=== PATIENT | male | born 1985 | race African-American/Black ===

== ENCOUNTER 2019-11-29 16:04 | Inpatient (IN) | payer OTHER ==
[2019-11-29 17:26] VITALS: BMI 18.6
--- NOTE | 2019-11-29 17:58 | HP ---
CIWA Score Nausea/Vomitin Muscle Tremors: 4-Moderate,w/Arms Extend Anxiety: 4-Mod. Anxious/Guarded Agitation: 3 Paroxysmal Sweats: 3 Orientation: 1-Uncertain about Date Tacttile Disturbances: 1-Very Mild Itch/Numbness Auditory Disturbances: 0-None Visual Disturbances: 0-None Headache: 0-None Present CIWA-Ar Total Score: 18 - Admission Criteria OASAS Guidelines: Admission for Medically Managed Detox: Requires at least one of the followin. CIWA greater than 12 2. Seizures within the past 24 hours 3. Delirium tremens within the past 24 hours 4. Hallucinations within the past 24 hours 5. Acute intervention needed for co occurring medical disorder 6. Acute intervention needed for co occurring psychiatric disorder 7. Severe withdrawal that cannot be handled at a lower level of care (continued vomiting, continued diarrhea, abnormal vital signs) requiring intravenous medication and/or fluids 8. Admitting History and Physical - Smoking History Smoking history: Current every day smoker Aproximately how many cigarettes per day: 10 Admission ROS [facility] Chief Complaint: Alcohol withdrawal symptoms Allergies/Adverse Reactions: Allergies Allergy/AdvReac Type Severity Reaction Status Date / Time No Known Allergies Allergy Verified 11/29/19 18:11 History of Present Illness: 34 years old male with a long history of alcohol dependence (since age 20 years ) is seeking admission to detox. Patient reports that his last detox was at [facility] and this is his first admission to [facility]. He denies medical history and psych. history of schizophrenia, bipolar disorder, anxiety and depression. 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 Patient reports that he lives in a transitional housing and is on public assistance. Exam Limitations: No Limitations - Ebola screening Have you traveled outside of the country in the last 21 days: No Have you been sick,other than usual withdrawal symptoms: No Do you have a fever: No - Review of Systems Constitutional: Chills, Loss of Appetite, Malaise, Night Sweats, Changes in sleep, Weakness EENT: reports: No Symptoms Reported Respiratory: reports: No Symptoms reported Cardiac: reports: No Symptoms Reported GI: reports: Diarrhea (x 2), Nausea, Poor Appetite, Poor Fluid Intake, Abdominal cramping : reports: No Symptoms Reported Musculoskeletal: reports: No Symptoms Reported Integumentary: reports: Dryness, Flushing Neuro: reports: Tremors Endocrine: reports: No Symptoms Reported Hematology: reports: No Symptoms Reported Psychiatric: reports: Mood/Affect Appropiate, Anxious, Depressed Other Systems: Reviewed and Negative Patient History - Patient Medical History Hx Anemia: No Hx Asthma: No Hx Chronic Obstructive Pulmonary Disease (COPD): No Hx Cancer: No Hx Cardiac Disorders: No Hx Congestive Heart Failure: No Hx Hypertension: No Hx Hypercholesterolemia: No HX Cerebrovascular Accident: No Hx Seizures: No Hx Diabetes: No Hx Gastrointestinal Disorders: No Hx Liver Disease: No Hx Genitourinary Disorders: No Hx Sexually Transmitted Disorders: No Hx Renal Disease (ESRD): No Hx Thyroid Disease: No Hx Human Immunodeficiency Virus (HIV): No (Negative 2019) Hx Hepatitis C: No Hx Depression: Yes (Seroquel, Haldol) Hx Suicide Attempt: No (Denies suicidal ideation at this time) Hx Bipolar Disorder: Yes (Seroquel, Haldol) Hx Schizophrenia: Yes (Seroquel, Haldol) - Patient Surgical History Past Surgical History: Yes Hx Neurologic Surgery: No Hx Cataract Extraction: No Hx Cardiac Surgery: No Hx Lung Surgery: No Hx Abdominal Surgery: No Hx Appendectomy: No Hx Cholecystectomy: No Hx Genitourinary Surgery: No Hx Orthopedic Surgery: No Other Surgical History: SPLEENECTOMY 2018 Anesthesia Reaction: No - PPD History Previous Implant?: Yes Documented Results: Negative w/o proof Implanted On Prior [facility] Admission?: No PPD to be Administered?: Yes - Reproductive History Patient is a Female of Child Bearing Age (11 -55 yrs old): No (male) - Smoking Cessation Smoking history: Former smoker Have you smoked in the past 12 months: No Hx Chewing Tobacco Use: No Initiated information on smoking cessation: No - Substance & Tx. History Hx Alcohol Use: Yes Hx Substance Use: No Substance Use Type: Alcohol Hx Substance Use Treatment: Yes ([facility] ) - Substances abused Alcohol Substance route: Oral Frequency: Daily Amount used: 6 PACK BEER + 1 BOTTLE VODKA Age of first use: 20 Date of last use: 11/28/19 Admission Physical Exam [facility] - Vital Signs Vital Signs: Vital Signs - 24 hr 11/29/19 17:13 Temperature 97.6 F Pulse Rate 79 Respiratory 18 Rate Blood Pressure 116/82 - Physical General Appearance: Yes: Severe Distress, Tremorous, Irritable, Sweating, Anxious HEENTM: Yes: Within Normal Limits Respiratory: Yes: Lungs Clear, Normal Breath Sounds, No Respiratory Distress Neck: Yes: Within Normal Limits Breast: Yes: Breast Exam Deferred Cardiology: Yes: Regular Rhythm, Regular Rate Abdominal: Yes: Normal Bowel Sounds, Soft Genitourinary: Yes: Within Normal Limits Back: Yes: Normal Inspection Musculoskeletal: Yes: Within Normal Limits Extremities: Yes: Tremors Integumentary: Yes: Warm Lymphatic: Yes: Within Normal Limits - Diagnostic (1) Alcohol dependence with withdrawal, uncomplicated Current Visit: Yes Status: Acute (2) Alcohol related seizure Current Visit: No Status: Chronic (3) Depression Current Visit: Yes Status: Acute Qualifiers: Depression Type: unspecified Qualified Code(s): F32.9 - Major depressive disorder, single episode, unspecified (4) Anxiety Current Visit: Yes Status: Acute Cleared for Admission [facility] - Detox or Rehab [facility] Level of Care: Medically Managed Detox Regimen/Protocol: Librium Claeared for Rehab Admission: No Breathalyzer - Breathalyzer Breathalyzer: 0.064 Urine Drug Screen - Test Device Lot number: [id number] Expiration date: 09/16/21 - Control Is test valid?: Yes - Results Drug screen NEGATIVE: No Urine drug screen results: BZO-Benzodiazepines Inpatient Rehab Admission - Rehab Decision to Admit Inpatient rehab admission?: No
[2019-11-29] MEDS ORDERED: MAG HYDROX/AL HYDROX/SIMETH 30 ML UNIT-DOSE CUP PO PRN (18:11)
[2019-11-29] MEDS ORDERED: METHOCARBAMOL 500 MG TABLET PO PRN (18:11)
[2019-11-29] MEDS ORDERED: ACETAMINOPHEN 325 MG TABLET (FP) PO PRN ×2 (18:11)
[2019-11-29] MEDS ORDERED: MAGNESIUM CITRATE 300 ML BOTTLE PO PRN (18:11)
[2019-11-29] MEDS ORDERED: chlordiazePOXIDE HCL 25 MG CAPSULE PO PRN (18:11)
[2019-11-29] MEDS ORDERED: IBUPROFEN 400 MG TABLET (FP) PO PRN (18:11)
[2019-11-29] MEDS ORDERED: MENTHOL/PHENOL 1 EACH UD MM PRN (18:11)
[2019-11-29] MEDS ORDERED: BISMUTH SUBSALICYLATE 524 MG/30 ML UD PO PRN (18:11)
[2019-11-29] MEDS ORDERED: hydrOXYzine PAMOATE 25 MG CAPSULE (FP) PO PRN (18:11)
[2019-11-29] MEDS ORDERED: MAGNESIUM HYDROX 2400MG/30ML ORAL SUSPENSION 30 ML CUP PO PRN (18:11)
[2019-11-29] MEDS: chlordiazePOXIDE HCL 25 MG CAPSULE PO SCH (22:13)
[2019-11-29] MEDS: MELATONIN 5 MG TABLETS PO PRN (22:13)
[2019-11-29] MEDS: THIAMINE HCL 100 MG TABLET (FP) PO SCH (22:13)
[2019-11-30] MEDS: chlordiazePOXIDE HCL 25 MG CAPSULE PO SCH ×4 (05:20→22:15)
--- NOTE | 2019-11-30 09:00 | PN ---
[facility] CIWA - CIWA Score Nausea/Vomitin-Mild Nausea/No Vomiting Muscle Tremors: 4-Moderate,w/Arms Extend Anxiety: 4-Mod. Anxious/Guarded Agitation: 1-Slight > Activity Paroxysmal Sweats: 2 Orientation: 0-Oriented Tacttile Disturbances: 0-None Auditory Disturbances: 0-None Visual Disturbances: 1-Very Mild Sensitivity Headache: 2-Mild CIWA-Ar Total Score: 15 [facility] Progress Note (SOAP) Subjective: 34 years old male admitted on 11/29/19 for alcohol withdrawal sx management treating with librium detox regiment feeling tired ate breakfast in room resting in bed encourage ensure Objective: 11/30/19 09:06 Vital Signs Temperature 98 F 11/30/19 08:53 Pulse Rate 74 11/30/19 08:53 Respiratory Rate 20 11/30/19 08:53 Blood Pressure 114/71 11/30/19 08:53 O2 Sat by Pulse Oximetry (%) 11/30/19 09:06 lab pending Assessment: 11/30/19 09:06 alcohol withdrawal Plan: librium regiment
[2019-11-30 09:49] LABS: HEMATOCRIT 35.7 % (35.4-49); HEMOGLOBIN 12.1 GM/dL (11.7-16.9); MCHC 33.8 g/dl (32.0-35.9); MEAN CELL VOLUME 97.6 fl (80-96); MEAN PLT VOLUME 8.8 fl (7.5-11.1); PLATELET COUNT 179 K/MM3 (134-434); RBC 3.66 M/mm3 (4.00-5.60); RDW 13.5 % (11.9-15.9); WHITE BLOOD COUNT 3.9 K/mm3 (4.0-10.0)
--- NOTE | 2019-11-30 10:05 | CONSULT ---
[facility] Psychiatric Consult - Data Date of interview: 11/30/19 Admission source: [facility] Identifying data: Patient is a 34 year old single male, without children, unemployed, resides in [facility], and is not currently receiving financial assistance. This is patient's first admission to detox at [facility]. Patient admitted to for alcohol dependence. Substance Abuse History: Smoking Cessation. Smoking history: Former smoker. Have you smoked in the past 12 months: No. Hx Chewing Tobacco Use: No. Initiated information on smoking cessation: No. - Substance & Tx. History. Hx Alcohol Use: Yes. Hx Substance Use: No. Substance Use Type: Alcohol. Hx Substance Use Treatment: Yes ([facility] ). - Substances abused. Alcohol. Substance route: Oral. Frequency: Daily. Amount used: 6 PACK BEER + 1 BOTTLE VODKA. Age of first use: 20. Date of last use: 11/28/19 Medical History: Spleenectomy 2018 Psychiatric History: Patient's first psychiatric contact was in his early 20's after onset disturbances of auditory/visual hallucinations. He was admitted to a psychiatric facility in [place] and prescribed psychotropic medications. After discharge he seeked psychiatric outpatient care but was not compliant with treatment. At age 32, Mr. Kohli was hospitalized at a hospital in [place] due to self injurious behavior of hitting his head against the wall. Patient's most recent outpatient psychiatric care was at the [facility] in April of 2019 and was prescribed haldol 5mg BID +Seroquel 200mg HS. States that he continues to take his medications as needed as he has old prescriptions. At present, patient denies auditory/visual hallucinations, suicidal/homicidal ideation. Physical/Sexual Abuse/Trauma History: denies. Mental Status Exam - Mental Status Exam Alert and Oriented to: Time, Place, Person Cognitive Function: Good Patient Appearance: Well Groomed Mood: Withdrawn Affect: Mood Congruent Patient Behavior: Fatigued, Cooperative Speech Pattern: Appropriate Voice Loudness: Normal Thought Process: Goal Oriented Thought Disorder: Not Present Hallucinations: Denies Suicidal Ideation: Denies Homicidal Ideation: Denies Insight/Judgement: Poor Sleep: Poorly Appetite: Fair Muscle strength/Tone: Normal Gait/Station: Normal Psychiatric Findings - Problem List (Tate 1, 2,3) (1) Schizoaffective disorder Current Visit: Yes Status: Chronic (2) Alcohol dependence with withdrawal, uncomplicated Current Visit: Yes Status: Acute - Initial Treatment Plan Initial Treatment Plan: Psychoeducation provided. Detoxification in progress. Will order Haldol 5mg BID + Seroquel 100mg HS. Benefits and side effects discussed. Verbal consent given.
[2019-11-30 10:16] LABS: ALBUMIN 3.4 g/dl (3.4-5.0); BILIRUBIN,TOTAL 1.3 mg/dL (0.2-1); BLOOD UREA NITROGEN 6.5 mg/dL (7-18); CALCIUM 8.7 mg/dL (8.5-10.1); CREATININE 0.7 mg/dL (0.55-1.3); POTASSIUM 3.4 mmol/L (3.5-5.1); TOT PROT 7.2 g/dl (6.4-8.2)
[2019-11-30] MEDS: PRENATAL VITAMINS W/ FOLIC ACID TABLET (FP) PO SCH (10:20)
[2019-11-30] MEDS: HALOPERIDOL 5 MG TABLET PO SCH ×2 (12:48→22:15)
--- NOTE | 2019-11-30 15:17 | EKG ---
Test Reason : Blood Pressure : / mmHG Vent. Rate : 075 BPM Atrial Rate : 075 BPM P-R Int : 144 ms QRS Dur : 086 ms QT Int : 426 ms P-R-T Axes : 035 054 016 degrees QTc Int : 475 ms NORMAL SINUS RHYTHM NONSPECIFIC ST ABNORMALITY ABNORMAL ECG WHEN COMPARED WITH ECG OF 29-NOV-2019 18:30, SINUS RHYTHM HAS REPLACED JUNCTIONAL RHYTHM QT HAS LENGTHENED Confirmed by MOODY ROSARIO MD ([id number]) on 11/30/2019 3:17:15 PM Referred By: Confirmed By:MOODY ROSARIO MD
--- NOTE | 2019-11-30 15:18 | EKG ---
Test Reason : Blood Pressure : / mmHG Vent. Rate : 071 BPM Atrial Rate : 234 BPM P-R Int : 000 ms QRS Dur : 076 ms QT Int : 374 ms P-R-T Axes : 000 063 041 degrees QTc Int : 406 ms POOR DATA QUALITY, INTERPRETATION MAY BE ADVERSELY AFFECTED UNDETERMINED RHYTHM ABNORMAL ECG NO PREVIOUS ECGS AVAILABLE Confirmed by MOODY ROSARIO MD ([id number]) on 11/30/2019 3:17:47 PM Referred By: Confirmed By:MOODY ROSARIO MD
[2019-11-30] MEDS: POTASSIUM CHLORIDE TABS 20 MEQ TABLET.ER (FP) PO SCH (20:30)
[2019-11-30] MEDS: THIAMINE HCL 100 MG TABLET (FP) PO SCH (22:15)
[2019-11-30] MEDS: QUEtiapine FUMARATE 200 MG TABLET PO SCH (22:15)
[2019-11-30] MEDS: MELATONIN 5 MG TABLETS PO PRN (22:16)
[2019-12-01] MEDS: chlordiazePOXIDE HCL 25 MG CAPSULE PO SCH ×4 (05:42→22:15)
--- NOTE | 2019-12-01 09:41 | PN ---
S CIWA - CIWA Score Nausea/Vomitin-Mild Nausea/No Vomiting Muscle Tremors: None Anxiety: 1-Mildly Anxious Agitation: 1-Slight > Activity Paroxysmal Sweats: No Perspiration Orientation: 1-Uncertain about Date Tacttile Disturbances: 0-None Auditory Disturbances: 0-None Visual Disturbances: 0-None Headache: 0-None Present CIWA-Ar Total Score: 4 [facility] Progress Note (SOAP) Subjective: Improved nausea Objective: 12/01/19 09:38 Laboratory Last Values WBC 3.9 K/mm3 (4.0-10.0) L 11/30/19 07:30 RBC 3.66 M/mm3 (4.00-5.60) L 11/30/19 07:30 Hgb 12.1 GM/dL (11.7-16.9) 11/30/19 07:30 Hct 35.7 % (35.4-49) 11/30/19 07:30 MCV 97.6 fl (80-96) H 11/30/19 07:30 MCH 33.0 pg (25.7-33.7) 11/30/19 07:30 MCHC 33.8 g/dl (32.0-35.9) 11/30/19 07:30 RDW 13.5 % (11.9-15.9) 11/30/19 07:30 Plt Count 179 K/MM3 (134-434) 11/30/19 07:30 MPV 8.8 fl (7.5-11.1) 11/30/19 07:30 Sodium 135 mmol/L (136-145) L 11/30/19 07:30 Potassium 3.4 mmol/L (3.5-5.1) L 11/30/19 07:30 Chloride 100 mmol/L (98-107) 11/30/19 07:30 Carbon Dioxide 27 mmol/L (21-32) 11/30/19 07:30 Anion Gap 8 MMOL/L (8-16) 11/30/19 07:30 BUN 6.5 mg/dL (7-18) L 11/30/19 07:30 Creatinine 0.7 mg/dL (0.55-1.3) 11/30/19 07:30 Est GFR (CKD-EPI)AfAm 144.72 11/30/19 07:30 Est GFR (CKD-EPI)NonAf 124.87 11/30/19 07:30 Random Glucose 86 mg/dL (74-106) 11/30/19 07:30 Calcium 8.7 mg/dL (8.5-10.1) 11/30/19 07:30 Total Bilirubin 1.3 mg/dL (0.2-1) H 11/30/19 07:30 AST 82 U/L (15-37) H 11/30/19 07:30 ALT 38 U/L (13-61) 11/30/19 07:30 Alkaline Phosphatase 103 U/L (45-117) 11/30/19 07:30 Total Protein 7.2 g/dl (6.4-8.2) 11/30/19 07:30 Albumin 3.4 g/dl (3.4-5.0) 11/30/19 07:30 RPR Titer Nonreactive (NONREACTIVE) 11/30/19 07:30 Vital Signs Temperature 97.8 F 12/01/19 08:35 Pulse Rate 125 H 12/01/19 08:35 Respiratory Rate 20 12/01/19 08:35 Blood Pressure 103/73 12/01/19 08:35 O2 Sat by Pulse Oximetry (%) PE: Gnl: WDWN, in no distress MS: awake, alert, nl language coordination: no tremor Assessment: 12/01/19 09:39 1. alchohol use disorder 2. opioid use disorder on methadone 60 qd 3. tachycardia Plan: 1. Librium detox 2. repeat vitals, HR elevation likely due to ambulating in unit, not symptomatic 3. continue Methadone 60 mg daily
[2019-12-01] MEDS: POTASSIUM CHLORIDE TABS 20 MEQ TABLET.ER (FP) PO SCH (10:08)
[2019-12-01] MEDS: PRENATAL VITAMINS W/ FOLIC ACID TABLET (FP) PO SCH (10:08)
[2019-12-01] MEDS: HALOPERIDOL 5 MG TABLET PO SCH ×2 (11:15→22:15)
--- NOTE | 2019-12-01 14:31 | PN ---
S Progress Note Note: Vital Signs Temperature 97.8 F 12/01/19 08:35 Pulse Rate 100 H 12/01/19 10:06 Respiratory Rate 20 12/01/19 08:35 Blood Pressure 103/73 12/01/19 08:35 O2 Sat by Pulse Oximetry (%) vitals repeated ~ 2pm HR81 Plan continue routine vs
[2019-12-01] MEDS: THIAMINE HCL 100 MG TABLET (FP) PO SCH (22:15)
[2019-12-01] MEDS: QUEtiapine FUMARATE 200 MG TABLET PO SCH (22:15)
[2019-12-02] MEDS ORDERED: chlordiazePOXIDE HCL 10 MG CAPSULE PO PRN
[2019-12-02] MEDS: chlordiazePOXIDE HCL 10 MG CAPSULE PO SCH ×4 (05:53→22:16)
[2019-12-02] MEDS: HALOPERIDOL 5 MG TABLET PO SCH ×2 (10:18→22:15)
[2019-12-02] MEDS: POTASSIUM CHLORIDE TABS 20 MEQ TABLET.ER (FP) PO SCH (10:18)
[2019-12-02] MEDS: PRENATAL VITAMINS W/ FOLIC ACID TABLET (FP) PO SCH (10:18)
--- NOTE | 2019-12-02 10:38 | PN ---
[facility] CIWA - CIWA Score Nausea/Vomitin-No Nausea/No Vomiting Muscle Tremors: None Anxiety: 2 Agitation: 2 Paroxysmal Sweats: 3 Orientation: 0-Oriented Tacttile Disturbances: 0-None Auditory Disturbances: 0-None Visual Disturbances: 0-None Headache: 0-None Present CIWA-Ar Total Score: 7 S Progress Note (SOAP) Subjective: c/o sweats, anxiety, and irritability. Objective: 12/02/19 10:39 Vital Signs 12/02/19 12/02/19 12/02/19 03:30 05:10 06:30 Temperature 97.9 F Pulse Rate 76 Respiratory 18 18 18 Rate Blood Pressure 106/67 12/02/19 08:37 Temperature 96.0 F L Pulse Rate 103 H Respiratory 18 Rate Blood Pressure 105/76 Laboratory Last Values WBC 3.9 K/mm3 (4.0-10.0) L 11/30/19 07:30 RBC 3.66 M/mm3 (4.00-5.60) L 11/30/19 07:30 Hgb 12.1 GM/dL (11.7-16.9) 11/30/19 07:30 Hct 35.7 % (35.4-49) 11/30/19 07:30 MCV 97.6 fl (80-96) H 11/30/19 07:30 MCH 33.0 pg (25.7-33.7) 11/30/19 07:30 MCHC 33.8 g/dl (32.0-35.9) 11/30/19 07:30 RDW 13.5 % (11.9-15.9) 11/30/19 07:30 Plt Count 179 K/MM3 (134-434) 11/30/19 07:30 MPV 8.8 fl (7.5-11.1) 11/30/19 07:30 Sodium 135 mmol/L (136-145) L 11/30/19 07:30 Potassium 3.4 mmol/L (3.5-5.1) L 11/30/19 07:30 Chloride 100 mmol/L (98-107) 11/30/19 07:30 Carbon Dioxide 27 mmol/L (21-32) 11/30/19 07:30 Anion Gap 8 MMOL/L (8-16) 11/30/19 07:30 BUN 6.5 mg/dL (7-18) L 11/30/19 07:30 Creatinine 0.7 mg/dL (0.55-1.3) 11/30/19 07:30 Est GFR (CKD-EPI)AfAm 144.72 11/30/19 07:30 Est GFR (CKD-EPI)NonAf 124.87 11/30/19 07:30 Random Glucose 86 mg/dL (74-106) 11/30/19 07:30 Calcium 8.7 mg/dL (8.5-10.1) 11/30/19 07:30 Total Bilirubin 1.3 mg/dL (0.2-1) H 11/30/19 07:30 AST 82 U/L (15-37) H 11/30/19 07:30 ALT 38 U/L (13-61) 11/30/19 07:30 Alkaline Phosphatase 103 U/L (45-117) 11/30/19 07:30 Total Protein 7.2 g/dl (6.4-8.2) 11/30/19 07:30 Albumin 3.4 g/dl (3.4-5.0) 11/30/19 07:30 RPR Titer Nonreactive (NONREACTIVE) 11/30/19 07:30 Labs noted. Assessment: 12/02/19 10:39 AOX3, in no acute respiratory distress. Full ROM, ambulating in the unit. Withdrawal symptoms. Plan: continue detox.
[2019-12-02] MEDS: QUEtiapine FUMARATE 200 MG TABLET PO SCH (22:15)
[2019-12-02] MEDS: THIAMINE HCL 100 MG TABLET (FP) PO SCH (22:16)
[2019-12-03] MEDS: chlordiazePOXIDE HCL 10 MG CAPSULE PO SCH ×2 (06:30→17:55)
[2019-12-03] MEDS: PRENATAL VITAMINS W/ FOLIC ACID TABLET (FP) PO SCH (10:36)
[2019-12-03] MEDS: POTASSIUM CHLORIDE TABS 20 MEQ TABLET.ER (FP) PO SCH (10:36)
[2019-12-03] MEDS: HALOPERIDOL 5 MG TABLET PO SCH ×2 (10:36→22:31)
--- NOTE | 2019-12-03 14:23 | PN ---
S CIWA - CIWA Score Nausea/Vomitin-No Nausea/No Vomiting Muscle Tremors: 1-None Visible, but [place] Anxiety: 2 Agitation: 0-Normal Activity Paroxysmal Sweats: 1-Minimal Palms Moist Orientation: 0-Oriented Tacttile Disturbances: 0-None Auditory Disturbances: 0-None Visual Disturbances: 0-None Headache: 0-None Present CIWA-Ar Total Score: 4 S Progress Note (SOAP) Subjective: 34 years old male admitted on 11/29/19 for alcohol withdrawal sx management treating with librium regiment feeling better today less tremor mild anxiety ambulating on hallway watching IV with peers ate breakfast and lunch in day room encourage the patient to discuss aftercare with staff Objective: 12/03/19 14:25 Vital Signs Temperature 98.8 F 12/03/19 13:34 Pulse Rate 108 H 12/03/19 13:34 Respiratory Rate 18 12/03/19 13:34 Blood Pressure 105/70 12/03/19 13:34 O2 Sat by Pulse Oximetry (%) Laboratory Last Values WBC 3.9 K/mm3 (4.0-10.0) L 11/30/19 07:30 RBC 3.66 M/mm3 (4.00-5.60) L 11/30/19 07:30 Hgb 12.1 GM/dL (11.7-16.9) 11/30/19 07:30 Hct 35.7 % (35.4-49) 11/30/19 07:30 MCV 97.6 fl (80-96) H 11/30/19 07:30 MCH 33.0 pg (25.7-33.7) 11/30/19 07:30 MCHC 33.8 g/dl (32.0-35.9) 11/30/19 07:30 RDW 13.5 % (11.9-15.9) 11/30/19 07:30 Plt Count 179 K/MM3 (134-434) 11/30/19 07:30 MPV 8.8 fl (7.5-11.1) 11/30/19 07:30 Sodium 135 mmol/L (136-145) L 11/30/19 07:30 Potassium 3.4 mmol/L (3.5-5.1) L 11/30/19 07:30 Chloride 100 mmol/L (98-107) 11/30/19 07:30 Carbon Dioxide 27 mmol/L (21-32) 11/30/19 07:30 Anion Gap 8 MMOL/L (8-16) 11/30/19 07:30 BUN 6.5 mg/dL (7-18) L 11/30/19 07:30 Creatinine 0.7 mg/dL (0.55-1.3) 11/30/19 07:30 Est GFR (CKD-EPI)AfAm 144.72 11/30/19 07:30 Est GFR (CKD-EPI)NonAf 124.87 11/30/19 07:30 Random Glucose 86 mg/dL (74-106) 11/30/19 07:30 Calcium 8.7 mg/dL (8.5-10.1) 11/30/19 07:30 Total Bilirubin 1.3 mg/dL (0.2-1) H 11/30/19 07:30 AST 82 U/L (15-37) H 11/30/19 07:30 ALT 38 U/L (13-61) 11/30/19 07:30 Alkaline Phosphatase 103 U/L (45-117) 11/30/19 07:30 Total Protein 7.2 g/dl (6.4-8.2) 11/30/19 07:30 Albumin 3.4 g/dl (3.4-5.0) 11/30/19 07:30 RPR Titer Nonreactive (NONREACTIVE) 11/30/19 07:30 lab noted Assessment: 12/03/19 14:26 alcohol withdrawal Plan: librium regiment
[2019-12-03] MEDS: QUEtiapine FUMARATE 200 MG TABLET PO SCH (22:31)
[2019-12-03] MEDS: THIAMINE HCL 100 MG TABLET (FP) PO SCH (22:31)
[2019-12-04] MEDS ORDERED: chlordiazePOXIDE HCL 10 MG CAPSULE PO ONE (05:00)
[2019-12-04 09:20] VITALS: BP 95/61; PULSE 69; TEMP 97.7
--- NOTE | 2019-12-04 11:36 | DS ---
[facility] Detox Discharge Summary Admission Date: 11/29/19 Discharge Date: 12/04/19 - History Present History: Alcohol Dependence Additional Comments: 34 years old male admitted on 11/29/19 for alcohol withdrawal sx management treated with librium detox regiment Mr Kohli has completed the librium regiment and tolerated well seen by psychiatrist resume haldol and seroquel alert oriented x 3 cardiac s1s2 regular rate rhythm respiratory clear lungs bilaterally on auscultation extremities full range of motion Pertinent Past History: time for discharge 34 minutes - Physical Exam Results Vital Signs: Vital Signs Temperature 97.7 F 12/04/19 08:42 Pulse Rate 69 12/04/19 08:42 Respiratory Rate 16 12/04/19 08:42 Blood Pressure 95/61 12/04/19 08:42 O2 Sat by Pulse Oximetry (%) Pertinent Admission Physical Exam Findings: alcohol withdrawal Vital Signs Temperature 97.7 F 12/04/19 08:42 Pulse Rate 69 12/04/19 08:42 Respiratory Rate 16 12/04/19 08:42 Blood Pressure 95/61 12/04/19 08:42 O2 Sat by Pulse Oximetry (%) Laboratory Last Values WBC 3.9 K/mm3 (4.0-10.0) L 11/30/19 07:30 RBC 3.66 M/mm3 (4.00-5.60) L 11/30/19 07:30 Hgb 12.1 GM/dL (11.7-16.9) 11/30/19 07:30 Hct 35.7 % (35.4-49) 11/30/19 07:30 MCV 97.6 fl (80-96) H 11/30/19 07:30 MCH 33.0 pg (25.7-33.7) 11/30/19 07:30 MCHC 33.8 g/dl (32.0-35.9) 11/30/19 07:30 RDW 13.5 % (11.9-15.9) 11/30/19 07:30 Plt Count 179 K/MM3 (134-434) 11/30/19 07:30 MPV 8.8 fl (7.5-11.1) 11/30/19 07:30 Sodium 135 mmol/L (136-145) L 11/30/19 07:30 Potassium 3.4 mmol/L (3.5-5.1) L 11/30/19 07:30 Chloride 100 mmol/L (98-107) 11/30/19 07:30 Carbon Dioxide 27 mmol/L (21-32) 11/30/19 07:30 Anion Gap 8 MMOL/L (8-16) 11/30/19 07:30 BUN 6.5 mg/dL (7-18) L 11/30/19 07:30 Creatinine 0.7 mg/dL (0.55-1.3) 11/30/19 07:30 Est GFR (CKD-EPI)AfAm 144.72 11/30/19 07:30 Est GFR (CKD-EPI)NonAf 124.87 11/30/19 07:30 Random Glucose 86 mg/dL (74-106) 11/30/19 07:30 Calcium 8.7 mg/dL (8.5-10.1) 11/30/19 07:30 Total Bilirubin 1.3 mg/dL (0.2-1) H 11/30/19 07:30 AST 82 U/L (15-37) H 11/30/19 07:30 ALT 38 U/L (13-61) 11/30/19 07:30 Alkaline Phosphatase 103 U/L (45-117) 11/30/19 07:30 Total Protein 7.2 g/dl (6.4-8.2) 11/30/19 07:30 Albumin 3.4 g/dl (3.4-5.0) 11/30/19 07:30 RPR Titer Nonreactive (NONREACTIVE) 11/30/19 07:30 lab noted - Treatment Hospital Course: Detox Protocol Followed, Detoxed Safely, Responded well, Discharged Condition Good, Rehab Referral Accepted Patient has Accepted a Rehab Referral to: community support approach - Medication Discharge Medications: Ambulatory Orders Haloperidol [Haldol -] 5 mg PO BID 11/29/19 Quetiapine Fumarate [Seroquel -] 200 mg PO HS 11/29/19 - Diagnosis (1) Alcohol dependence with withdrawal, uncomplicated Current Visit: Yes Status: Acute (2) Schizoaffective disorder Current Visit: Yes Status: Suspected Qualifiers: Schizoaffective disorder type: unspecified Qualified Code(s): F25.9 - Schizoaffective disorder, unspecified - AMA Did Patient Leave Against Medical Advice: No CIWA Score - CIWA Score Nausea/Vomitin-No Nausea/No Vomiting Muscle Tremors: None Anxiety: 1-Mildly Anxious Agitation: 0-Normal Activity Paroxysmal Sweats: No Perspiration Orientation: 0-Oriented Tacttile Disturbances: 0-None Auditory Disturbances: 0-None Visual Disturbances: 0-None Headache: 0-None Present CIWA-Ar Total Score: 1
== END 2019-12-04 09:58 | disposition home or self-care (01) | DRG 773 ==
LOC: YASAS 16:04 → Y3N 18:21
PROVIDERS: ADMIT Allergy & Immunology; ATTEND Allergy & Immunology
PROC: HZ2ZZZZ Detoxification Services for Substance Abuse Treatment (ICD-10-PCS; principal; 2019-11-29)
DX: F10.230 Alcohol dependence with withdrawal, uncomplicated (principal); F11.20 Opioid dependence, uncomplicated; F17.210 Nicotine dependence, cigarettes, uncomplicated; F25.9 Schizoaffective disorder, unspecified; F31.9 Bipolar disorder, unspecified; F41.9 Anxiety disorder, unspecified; R56.9 Unspecified convulsions; R00.0 Tachycardia, unspecified
CPT/HCPCS: 36415; 80053; 85027; 86593; 93005; 93010